=== PATIENT | male | born 1995 | race Caucasian/White ===

== ENCOUNTER 2025-08-01 10:48 | Emergency (ER) | payer SELFPAY | END 2025-08-01 12:10 | disposition home or self-care (01) | LOC: VM.ED 10:48 | DX: S50.02XA Contusion of left elbow, initial encounter (principal); W22.8XXA Striking against or struck by other objects, initial encounter; Y93.89 Activity, other specified; Y99.0 Civilian activity done for income or pay | CPT/HCPCS: 73080-LT; 99283 ==